=== PATIENT | female | born 1955 | race Caucasian/White ===

== ENCOUNTER 2024-02-15 06:21 | Day surgery (SDC) | payer OTHER, SELFPAY ==
[2024-02-09 12:29] LABS: Urine Albumin Negative (Neg - Trace); Urine Bilirubin Negative (Negative); Urine Character Slightly Cloudy (Clear); Urine Color Yellow; Urine Glucose Negative (Negative); Urine Ketone Negative (Negative); Urine Leukocyte Negative (Negative); Urine Nitrite Negative (Negative); Urine Occult Blood Negative (Negative); Urine Specific Gravity 1.025 (<1.030); Urine Urobilinogen Negative (Neg - 1+)
[2024-02-09 12:33] LABS: % Basophils 0.7 % (0-2); % Eosinophils 7.2 % (0-6); % Immature Granulocytes 0.2 % (0-0.5); % Lymphocytes 44.4 % (20.5-51.1); % Monocytes 6.6 % (1.7-9.3); % Neutrophils 40.9 % (42.2-75.2); Absolute Eosinophils 0.4 10^3/uL (0-0.7); Absolute Lymphocytes 2.5 10^3/uL (1.2-3.4); Absolute Monocytes 0.4 10^3/uL (0.1-0.6); Absolute Neutrophils 2.3 10^3/uL (1.4-6.5); Hematocrit 32.6 % (37.0-47.0); Hemoglobin 10.6 g/dL (12.0-16.0); Mean Corp Hgb Conc. 32.5 g/dL (33.0-37.0); Mean Corpuscular Volume 79.9 fL (81.0-99.0); Mean Platelet Volume 10.9 fL (7.4-10.4); Nucleated Red Blood Cells % 0 %; Platelet Count 257 10^3/uL (130-400); Red Blood Cell Count 4.08 10^6/uL (4.20-5.40); Red Cell Dist. Width 16.1 % (11.5-14.5); White Blood Cell Count 5.6 10^3/uL (4.8-10.8)
[2024-02-09 12:40] LABS: INR 0.97; PT 12.7 Sec (11.4-14.6)
[2024-02-09 12:41] LABS: APTT 26.3 Sec (23.4-35.0)
[2024-02-09 13:10] LABS: Blood Urea Nitrogen 30 mg/dl (7-17); Calcium 9.2 mg/dl (8.4-10.2); Carbon Dioxide 26 mmol/L (22-30); Chloride 107 mmol/L (98-107); Glucose 88 mg/dl (70-99); Potassium 3.9 mmol/L (3.5-5.1); Sodium 144 mmol/L (135-145); eGFR > 60.00
[2024-02-15] VITALS (9 sets, daily range): BP systolic 118–147; BP diastolic 64–99; BMI 36.1
[2024-02-15] MEDS: NORMOSOL-R/PLASMALYTE-A 1000 IV (09:42)
[2024-02-15] MEDS: DILAUDID 0.25 MG IV (11:50)
== END 2024-02-15 13:21 | disposition home or self-care (01) ==
LOC: SDS 06:21
PROVIDERS: ATTENDING PHYSICIAN Urology; FAMILY PHYSICIAN Internal Medicine
DX: T83.190A Other mechanical complication of urinary electronic stimulator device, initial encounter (principal); N39.41 Urge incontinence; Y73.2 Prosthetic and other implants, materials and accessory gastroenterology and urology devices associated with adverse incidents; R15.9 Full incontinence of feces
CPT/HCPCS: 64590; 64561; 36415; 72170; 76000; 80048; 81003; 85025; 85610; 85730; 93005; C1767; C1778; C1787

== ENCOUNTER → 2024-11-07 13:43 | Outpatient (REF) | payer OTHER, SELFPAY | LOC: RAD 13:43 | PROVIDERS: ATTENDING PHYSICIAN Urology; FAMILY PHYSICIAN Internal Medicine | DX: N39.41 Urge incontinence (principal) | CPT/HCPCS: 72220 ==